=== PATIENT | female | born 1975 | race Two or more races ===

== ENCOUNTER → 2024-09-21 | Outpatient (CLI) | payer BC, MEDICAID, SELFPAY ==
--- NOTE | 2024-09-21 10:09 | XR_ITS ---
Examination: Knee, right , 3 views Technique: Knee AP, lateral, oblique 3 views Date and time of exam: September 21, 2024 11:00 AM INDICATIONS: Right knee pain beginning 2 months ago. FINDINGS: Mild to moderate tricompartment osteoarthritis, most severe medial joint space Moderate osteopenia No fracture or dislocation Small knee effusion IMPRESSION: Mild to moderate tricompartment osteoarthritis
== END | disposition home or self-care (01) ==
PROVIDERS: PCP Nurse Practitioner Family; Referring Provider Nurse Practitioner Family; Visit Provider Nurse Practitioner Family
DX: M17.11 Unilateral primary osteoarthritis, right knee (principal)
CPT/HCPCS: 73560